=== PATIENT | male | born 1985 | race Caucasian/White ===

== ENCOUNTER 2019-03-08 20:17 | Emergency (ER) | payer SELFPAY ==
--- NOTE | 2019-03-08 20:37 | RAD ---
4 views left knee: 03/08/2019 COMPARISON: None HISTORY: Knee pain for one week FINDINGS: No fracture or dislocation. No radiopaque foreign body or subcutaneous gas. Small knee join t effusion suspected. IMPRESSION: No acute fracture or dislocation. Probable small knee joint effusion.
[2019-03-08] MEDS ORDERED: traMADol HCl 50 MG TAB ONE (21:14)
== END 2019-03-08 21:43 | disposition home or self-care (01) ==
LOC: ERS 20:17
DX: M25.562 Pain in left knee (principal); I10 Essential (primary) hypertension; F17.210 Nicotine dependence, cigarettes, uncomplicated; Z79.899 Other long term (current) drug therapy

== ENCOUNTER 2019-06-26 13:46 | Emergency (ER) | payer SELFPAY | END 2019-06-26 15:59 | disposition home or self-care (01) | LOC: ERS 13:46 | DX: L23.7 Allergic contact dermatitis due to plants, except food (principal); I10 Essential (primary) hypertension; F17.210 Nicotine dependence, cigarettes, uncomplicated; Z79.899 Other long term (current) drug therapy | CPT/HCPCS: 99282 ==

== ENCOUNTER 2020-07-28 11:12 | Emergency (ER) | payer SELFPAY ==
--- NOTE | 2020-07-28 11:43 | RAD ---
Exam: XR Elbow Rt 4 View STANDARD HISTORY: Right elbow swelling and redness and warmth to touch. History of prior injury to elbow. COMPARISON: None FINDINGS: No acute fracture, dislocation, or other acute osseous abnormality is identified. There is subcutaneous soft tissue swelling seen at the dorsal aspect of the elbow. This could be rela celine to overlying cellulitis. However, fluid within the bursa and associated bursitis is a possibility. If there is clinical concern for infection, MRI right elbow may be helpful for further e valuation. IMPRESSION: Soft tissue prominence posterior right elbow which could be related to subcutaneous soft tissue swell ing and associated cellulitis in the correct clinical scenario. Fluid within the olecranon bursa related to bursitis is a possibility. However, if there is concern for infection, MRI right elbow wit h and without IV contrast is recommended for further evaluation.
== END 2020-07-28 13:23 | disposition home or self-care (01) ==
LOC: ERS 11:12
DX: M70.21 Olecranon bursitis, right elbow (principal); I10 Essential (primary) hypertension; F17.210 Nicotine dependence, cigarettes, uncomplicated

== ENCOUNTER 2020-09-17 08:08 | Emergency (ER) | payer SELFPAY | END 2020-09-17 08:43 | disposition home or self-care (01) | LOC: ERS 08:08 | DX: L25.9 Unspecified contact dermatitis, unspecified cause (principal); I10 Essential (primary) hypertension; Z87.891 Personal history of nicotine dependence | CPT/HCPCS: 99283 ==

== ENCOUNTER 2020-09-18 15:21 | Emergency (ER) | payer SELFPAY ==
[2020-09-18] MEDS ORDERED: Dexamethasone 4 mg/ml Vial ONE (15:56)
== END 2020-09-18 16:18 | disposition home or self-care (01) ==
LOC: ERS 15:21
DX: L23.7 Allergic contact dermatitis due to plants, except food (principal); I10 Essential (primary) hypertension; Z87.891 Personal history of nicotine dependence
CPT/HCPCS: 99282; J1100

== ENCOUNTER 2020-09-25 10:43 | Emergency (ER) | payer SELFPAY ==
[2020-09-25] MEDS ORDERED: Dexamethasone 4 mg/ml Vial ONE (11:37)
[2020-09-25] MEDS ORDERED: Famotidine 20 MG TAB ONE (11:38)
[2020-09-25] MEDS ORDERED: diphenhydrAMINE 25 MG CAP ONE (11:38)
[2020-09-25] MEDS ORDERED: Dexamethasone 4 MG TAB ONE (12:35)
== END 2020-09-25 12:46 | disposition home or self-care (01) ==
LOC: ERS 10:43
DX: R21 Rash and other nonspecific skin eruption (principal); I10 Essential (primary) hypertension; Z87.891 Personal history of nicotine dependence; Z79.899 Other long term (current) drug therapy
CPT/HCPCS: 99282; J1100; J8540; Q0163